=== PATIENT | female | born 1945 | race Asian ===

== ENCOUNTER 2020-08-01 21:31 | Emergency (ER) | payer OTHER ==
[~2020-08-01] VITALS: Ht 160 cm; Wt 61.2 kg
--- NOTE | 2020-08-01 21:52 | NUR ---
BIBS FROM HOME TO ER BED 7. AAOX4. NO TIN RESP DISTRESS, BREATHING EVEN AND UNLABORED. AMBULATORY. CAME IN FOR PALPITATION AFTER TAKING GOUT MEDICATION COLCRYS. ACCORING TO PT, SHE TOOK HER INITIAL DOSE OF 2 PILLS @ 1700 THEN FOLLOWED UP WITH ANOTHER TAB AN HOUR AFTER. SHE THAN STARTED TO HAVE PALPITATIONS AND GOT FEELING NERVOUS. PT THING THAT SHE MIGHT HAVE A SIDE EFFECT OF THE MEDICATION. PT IS NOTED TACHYCARDIC IN THE 110s. PT DID VERBALIZED THAT SHE HAS PAIN IN HER CHEST WHICH SHE DESCRIBES IF HAVING A HEART BURN. PT ON MONITOR. EKG BEING DONE AT BEDSIDE. AWAITING MD FOR AMIE.
--- NOTE | 2020-08-01 22:06 | NUR ---
IV ESTABLISHED ON L AC 20G, BLOOD DRAWN AND GIVEN TO PLASTERER FOREMAN AT BEDSIDE
--- NOTE | 2020-08-01 22:08 | NUR ---
XRAY DONE AT BEDSIDE.
[2020-08-01 22:10] LABS: BASOPHILS % (AUTO) 0.3 % (0.0-2.0); EOSINOPHILS % (AUTO) 2.3 % (0.0-6.0); HEMATOCRIT 42 % (33-45); HEMOGLOBIN 14.4 g/dL (11.5-14.8); LYMPHOCYTES # (AUTO) 2.1 /CMM (0.8-4.8); MEAN CORPUSCULAR HGB CONC 34 g/dl (31.0-36.0); MEAN CORPUSCULAR VOLUME 92 fL (82-100); MONOCYTES # (AUTO) 0.8 /CMM (0.1-1.30); MONOCYTES % (AUTO) 10.2 % (2.0-12.0); NEUTROPHILS % (AUTO) 61.2 % (43.0-81.0); PLATELET COUNT (AUTO) 361 /CMM (150-450); RED BLOOD CELL COUNT(AUTO) 4.59 MIL/uL (4.0-5.2); WHITE BLOOD COUNT (AUTO) 8.2 K/uL (4.3-11.0)
--- NOTE | 2020-08-01 22:10 | NUR ---
PT AMBULATED TO BATHROOM W/O ASSIST ON STEADY GAIT
[2020-08-01 22:20] LABS: CALCIUM, SERUM 9.9 mg/dL (8.5-10.1); CARBON DIOXIDE 29 mmol/L (21-32); CHLORIDE 101 mmol/L (98-107); CREATININE 0.8 mg/dL (0.6-1.3); GLUCOSE 129 mg/dL (74-106); SODIUM SERUM 140 mmol/L (136-145); UREA NITROGEN, BLOOD 23 mg/dL (7-18)
[2020-08-01 22:22] LABS: POTASSIUM 2.5 mmol/L (3.5-5.1)
[2020-08-01] MEDS ORDERED: POTASSIUM CHLORIDE 20 MEQ TAB.PRT.SR PO ONE ×2 (22:28→22:30)
[2020-08-01] MEDS ORDERED: LORAZEPAM INJ 2 MG/ML VIAL ONE (22:29)
[2020-08-01] MEDS ORDERED: LORAZEPAM INJ 2 MG/ML VIAL IV ONE (22:30)
[2020-08-01 22:36] LABS: THYROID STIMULATING HORMONE 9.933 uIU/mL (0.358-3.74)
--- NOTE | 2020-08-01 23:12 | NUR ---
ATIVAN 0.5MG IV CANCELLED BY . PT IS DRIVING TO GET HOME
[2020-08-01 23:17] VITALS: BP 138/65
--- NOTE | 2020-08-01 23:17 | NUR ---
Patient discharged to home in stable condition. Written and verbal after care instructions given. Patient verbalizes understanding of instruction.IV removed. Catheter intact and site benign. Pressure and 4x4 applied to site. No bleeding noted. Pt ambulatory with a steady gait
== END 2020-08-01 23:17 | disposition home or self-care (01) ==
LOC: ER 21:39
DX: R00.2 Palpitations (principal); R45.0 Nervousness; R11.0 Nausea; I10 Essential (primary) hypertension; M10.9 Gout, unspecified; E78.00 Pure hypercholesterolemia, unspecified; Z88.6 Allergy status to analgesic agent
CPT/HCPCS: 36415; 71045-TC; 80048-TC; 84439-TC; 84443-TC; 84484-TC; 85025-TC; J2060